=== PATIENT | female | born 1960 | race Caucasian/White ===

== ENCOUNTER 2024-07-23 09:44 | Emergency (ER) | payer BC ==
[~2024-07-23] VITALS: Ht 154.9 cm; Wt 92.7 kg
[~2024-07-23 09:44] MED LIST: ATORVASTATIN CA40 MG PO; CO Q-10 PO; HYDROCHLOROTHIA25 MG PO; ONDANSETRON ODT4 MG PO; PANTOPRAZOLE SO40 MG PO
[2024-07-23 10:48] VITALS: PULSE 97; RESP 16; TEMP 97.9; O2SAT 96
[2024-07-23] MEDS ORDERED: LOSARTAN POTASS25 MG PO (11:52)
[2024-07-23] MEDS ORDERED: SIMVASTATIN20 MG PO (11:52)
== END 2024-07-23 10:48 | disposition home or self-care (01) ==
LOC: FSED 09:56
DX: R05.9 Cough, unspecified (principal); J06.9 Acute upper respiratory infection, unspecified; I10 Essential (primary) hypertension; Z11.52 Encounter for screening for COVID-19; Z85.038 Personal history of other malignant neoplasm of large intestine
CPT/HCPCS: 0223U; 83518; 87400; 99283